=== PATIENT | female | born 1960 | race Caucasian/White ===

== ENCOUNTER 2025-10-11 14:12 | Outpatient (AMB) | payer MEDICARE, SELFPAY ==
[2025-10-11 14:16] VITALS: BP 130/88; PULSE 88; RESP 15; TEMP 37.1; O2SAT 96; BMI 32.1
--- NOTE | 2025-10-11 14:16 | MHC.PC.OV ---
Vital Signs 10/11/25 14:16 10/11/25 14:38 Height 5 ft 6.75 in Weight 203 lb 6 oz BMI 32.1 BP 130/88 132/88 Blood Pressure Location Rt brachial Position Sitting Respiration 15 Pulse 88 Pulse Source Pulse Oximeter Temp 98.8 F Temp Source Temporal Artery Scan Pulse Oximetry (%) 96 Oxygen Delivery Method Room Air Intake Visit Reasons: Est. Care / Blood work / Physical Intake Note: Marleny presents in the office today to establish care. Is last menstrual period known: No Post menopausal: Yes Patient : No Allergies Seasonal Allergies Allergy (Verified 10/11/25 14:18) Stuffy nose Tobacco use date assessed: 10/11/25 Fall risk assessment: No Falls in past year Last assessed Fall Risk: 10/11/25 Dental Screening Dental Screen Date: 10/11/25 Did you have a dental visit in the last 12 months?: Yes Did you have a dental problem in the last 6 months where you did not have access to dental care?: No Was dental information given to patient?: Patient has dentist HPI HPI Comments History of Present Illness Details 64 year old female presents to establish care. Prior medical records unavailable at this time. Lipoma on left shoulder for many years. It is large. She would like it resected. It has grown over the years. Seen years ago at [facility] [place]. BP is mildly elevated today. She is checking it at home and had more elevated readings that she thinks might not be accurate like 168/102. Followed by [facility]. She had precancerous lesions revmoed. Declines mammogram and bone density test and colonoscopy. Defers cologuard. ROS: Constitutional: No unexplained weight loss, fever, chills, fatigue or night sweats. Eyes: No vision changes, blurry vision, double vision, eye pain, eye redness, eye discharge. ENT: No hearing loss, sneezing, congestion, runny nose or sore throat. Respiratory: No shortness of breath, cough or sputum production. Cardiovascular: No chest pain, chest pressure or chest discomfort. No palpitations or pedal edema. Gastrointestinal: No anorexia, nausea, vomiting or diarrhea. No abdominal pain or blood in stool. Genitourinary: No dysuria, hematuria, urinary frequency. Neurologic: No headache, dizziness, syncope, unilateral weakness, ataxia, numbness or tingling in the extremities. Musculoskeletal: No muscle pain, back pain, joint pain or swelling. Hematologic/Lymphatics: No bleeding or bruising. No painful lymph nodes. Skin: No rash Endocrine: No cold or heat intolerance. No polyuria or polydipsia. Psychiatric: No depression or anxiety. No SI/HI. Physical exam: Constitutional: Alert, in no distress. Head: Normocephalic. Eyes: Pupils are equal, round and reactive to light. Extraocular muscles intact. Ear, Nose and Throat: Canals clear. TMs normal. Normal nasal mucosa. No nasal discharge. No oral lesions. Neck: Supple, Full range of motion. No lymphadenopathy. No palpable thyroid masses. Respiratory: Clear to auscultation. Cardiovascular: S1 S2 regular. No murmurs. No carotid bruits. Gastrointestinal: Abdomen soft, non-tender, non-distended. Normal bowel sounds. No palpable masses. Neurologic: No focal neurological deficits. Symmetric patellar reflexes. Moves all extremities spontaneously. Sensation intact bilaterally. Skin: There is a large, soft tissue mass on the left shoulder. Nontender. Musculoskeletal: No gross deformities. Extremities: Warm and well perfused. No clubbing, cyanosis or edema. [facility] Medical History (Updated 10/12/25 @ 15:49 by RAMON Franco) Precancerous skin lesion Elevated blood pressure reading Routine physical examination Screening for cardiovascular condition Lipoma of arm Family History (Updated 10/11/25 @ 15:27 by Erica Galaviz CMA) Mother Skin cancer Father Skin cancer Maternal Grandmother Cardiovascular disease Clotting disorder Daughter Thyroid disorder Social History (Updated 10/11/25 @ 14:23 by Erica Galaviz CMA) Housing: Condominium Alcohol intake: never Patient Tobacco Use Status: Never used Tobacco e-Cigarette/Vaping Use: Never Used Second Hand Smoke Exposure: No service: No Current occupational status: employed and retired Current occupational exposures/hazards: No Cognitive needs: No Hearing needs: No Vision needs: No Questionnaire PHQ-9 Over the last 2 weeks, how often have you been bothered by any of the following problems? 1. Little interest or pleasure in doing things: not at all 2. Feeling down, depressed, or hopeless: not at all 3. Trouble falling or staying asleep, or sleeping too much: not at all 4. Feeling tired or having little energy: not at all 5. Poor appetite or overeating: not at all 6. Feeling bad about yourself - or that you are a failure or have let yourself or your family down: not at all 7. Trouble concentrating on things, such as reading the newspaper or watching television: not at all 8. Moving or speaking so slowly that other people could have noticed. Or the opposite - being so fidgety or restless that you have been moving around a lot more than usual: not at all 9. Thoughts that you would be better off or of hurting yourself in some way: not at all Total score: 0 Depression Screening Interpretation: Negative Depression Screening Done: Yes 18330 - PHQ-9 Billing: Yes Source: Developed by Drs. Luís Salinas, Rafia Yip, Iván Schuler and colleagues, with an educational fabrice from [employer]. Thrive Questionnaire Date Thrive assessed: 10/11/25 I am a: Patient What is your living situation today?: I have a steady place to live Within the past 12 months, did the food you bought not last and you didn't have the money to get more?: Never true Within the past 12 months, did you worry whether your food would run out before you got money to buy more?: Never true Do you have trouble paying for medicines?: No Do you have trouble getting transportation to medical appointments?: No Do you have trouble paying your heating and electricity bill?: I choose not to answer this question Do you have trouble taking care of your child, family member or friend?: No Do you have trouble with day-to-day activities such as bathing, preparing meals, shopping, managing finances, etc.?: No Are you currently unemployed and looking for a job?: I choose not to answer this question Are you interested in more education?: No Please select the resources that you would like help with: None Currently or been in a relationship where the following occur: No concerns reported THRIVE Score: 0 AUDIT C Alcohol Use Questionnaire (AUDIT-C) 1. How often do you have a drink containing alcohol?: Never 3. How often do you have six or more drinks on one occasion?: Never Total Score: 0 KRISTINE-7 AMB Questionnaire KRISTINE-7 Date KRISTINE - 7 assessed: 10/11/25 Feeling nervous, anxious, or on edge: 0 = Not at all Not being able to stop or control worryin = Not at all Worrying too much about different things: 0 = Not at all Trouble relaxin = Not at all Being so restless that it is hard to sit still: 0 = Not at all Becoming easily annoyed or irritable: 0 = Not at all Feeling afraid as if something awful might happen: 0 = Not at all Total KRISTINE-7 score (0-4 normal; 5-9 mild; 10-14 moderate; 15-21 severe): 0 Source: Developed by Drs. Luís Salinas, Rafia Yip, Iván Schuler and colleagues, with an educational fabrice from [employer]. KRISTINE-7 Assessment Billing KRISTINE-7 Assessment Tool: KRISTINE-7 Assessment 82502 Physical exam (Primary Care) Vital Signs: Last Vital Signs Temp 98.8 F 10/11/25 14:16 Pulse 88 10/11/25 14:16 Resp 15 10/11/25 14:16 BP 132/88 10/11/25 14:38 Pulse Ox 96 10/11/25 14:16 Oxygen Delivery Method Room Air 10/11/25 14:16 BMI result Body Mass Index 32.1 Tobacco/Smoking Status: Tobacco use Status Tobacco use date assessed 10/11/25 10/11/25 14:27 Patient Tobacco Use Status Never used Tobacco 10/11/25 14:27 e-Cigarette/Vaping Use Never Used 10/11/25 14:27 PHQ-9: PHQ-9 Score PHQ-9: Total score 0 10/11/25 14:57 Depression Screening Interpretation: Negative Thrive Assessment: Date of Thrive Assessment Date Thrive assessed 10/11/25 10/11/25 14:57 Currently or been in a relationship where the following occur: No concerns reported Coding Level of Care Code New Pt Level 4 (80587) Add On Problem Visit Only Diagnoses Lipoma of left upper extremity D17.22 Laterality: left Screening for cardiovascular condition Z13.6 Elevated blood pressure reading R03.0 Precancerous skin lesion L98.9 Additional Codes KRISTINE-7 Assessment Billing - KRISTINE-7 Assessment Tool: KRISTINE-7 Assessment 82503 ([id number]) PHQ-9 - 89701 - PHQ-9 Billing: Yes ([id number]) Assessment & Plan Assessment & Plan (1) Lipoma of arm: Code(s): D17.20 - Benign lipomatous neoplasm of skin and subcutaneous tissue of unspecified limb Category: Medical Qualifiers: Laterality: left Qualified Code(s): D17.22 - Benign lipomatous neoplasm of skin and subcutaneous tissue of left arm Plan: Referred to general surgery. (2) Screening for cardiovascular condition: Code(s): Z13.6 - Encounter for screening for cardiovascular disorders Category: Medical (3) Elevated blood pressure reading: Code(s): R03.0 - Elevated blood-pressure reading, without diagnosis of hypertension Category: Medical Plan: Recommended low sodium diet and avoidance of caffeine. Will have pt follow up with nurse navigator for BP check and have her bring in her own cuff that day (4) Precancerous skin lesion: Code(s): L98.9 - Disorder of the skin and subcutaneous tissue, unspecified Category: Medical Plan: Followed by dermatology. Plan Schedule AWV in 1 year. Orders: Orders Comprehensive Met. Panel 10/11/25 Z00.00 - Encounter for general adult medical examination without abnormal findings, Z13.6 - Encounter for screening for cardiovascular disorders TSH reflex Free T4 10/11/25 Z00.00 - Encounter for general adult medical examination without abnormal findings, Z13.6 - Encounter for screening for cardiovascular disorders Complete Blood Count no Diff 10/11/25 Z00.00 - Encounter for general adult medical examination without abnormal findings, Z13.6 - Encounter for screening for cardiovascular disorders Lipid Panel 10/11/25 Z00.00 - Encounter for general adult medical examination without abnormal findings, Z13.6 - Encounter for screening for cardiovascular disorders Vitamin D 25-OH (D2 and D3) 10/11/25 Z00.00 - Encounter for general adult medical examination without abnormal findings, Z13.6 - Encounter for screening for cardiovascular disorders Referrals General Surgery Referral D17.20 - Benign lipomatous neoplasm of skin and subcutaneous tissue of unspecified limb
[2025-10-11 14:38] VITALS: BP 132/88
--- OUTSIDE RECORDS SUMMARY | 2025-10-11 21:43 | XMS_ITS | Patient Health Record ---
Author Organization [facility] Address [address] [place] [address] Care Team Providers Care Optical Instrument Inspector Name Role Phone FARIHA Brock Primary Care Provider FARIHA ROBLES MD Unavailable Unavailable Allergies Allergen (clinical drug ingredient) Drug/Non Drug Allergy documented on EMR Reaction Allergy Type Onset Date Status Penicillin rash Drug Allergy Active Reason For Referral No Information Medications Medication SIG (Take, Route, Frequency, Duration) Notes Start Date End Date Status Vitamin D 1000 IU 1 TAB OCC NAME ONLY Conversion from Giveit100um Review and pick correct strength-formulatio n from Plays.IO options. If intended option is not shown, discontinue and re-order from Quick Search. Active Multivitamin - Tablet 1 tab(s) orally occ Active Verapamil HCl ER 120 MG Tablet Extended Release 1 capsule Orally Once a day; Duration: 30 day(s) 04/02/2022 Active ALPRAZolam 0.5 MG Tablet 1/2-1 tab(s) orally once a day PRN 1 hour before flying; Duration: 30 days 04/02/2022 Active B COMPLEX 100 50MG 1 TAB OCC *Please revie w for potential replacement for e-prescription and drug interaction check* Active Zinc DIRECTED ORALLY 3-4 TIMES A WEEK NAME ONLY Conversion from Multum Review and pick correct strength-formulatio n from Plays.IO options. If intended option is not shown, discontinue and re-order from Quick Search. 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 Past year's travels[place] alcohol use: no drug use: no Hobbies/Exercise habits: none Coffee/Tea/Soda: yes Soda alot weekl y, no tea,no coffee Marital Status experience no Living with Boyfriend Pets 3 cats smokers in household no Problems Problem Type SNOMED Code ICD Code Onset Dates Problem Status W/U Status Risk Notes Problem Vitamin D deficiency (30556116) Vitamin D deficiency (E55.9) Active confirmed Problem Annual health maintenance examination (34233593) Annual physical exam (Z00.00) Active confirmed Problem 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
== END 2025-10-11 14:56 | disposition home or self-care (01) ==
LOC: HO.HMCFM 14:13
PROVIDERS: PCP Physician Assistant; Visit Provider Physician Assistant Medical
DX: D17.22 Benign lipomatous neoplasm of skin and subcutaneous tissue of left arm (principal); Z13.6 Encounter for screening for cardiovascular disorders; R03.0 Elevated blood-pressure reading, without diagnosis of hypertension; L98.9 Disorder of the skin and subcutaneous tissue, unspecified